=== PATIENT | male | born 1985 | race African-American/Black ===

== ENCOUNTER 2020-08-09 12:37 | Outpatient (CLI) | payer MEDICAID, SELFPAY | END 2020-08-09 17:00 | disposition home or self-care (01) | LOC: SLB 12:37 | PROVIDERS: ATTEND Otolaryngology | DX: Z20.828 Contact with and (suspected) exposure to other viral communicable diseases (principal) | CPT/HCPCS: C9803; U0003 ==

== ENCOUNTER 2020-08-10 07:12 | Outpatient (CLI) | payer MEDICAID, SELFPAY | END 2020-08-10 20:58 | disposition home or self-care (01) | LOC: SLB 07:12 | PROVIDERS: ATTEND Otolaryngology | DX: Z20.828 Contact with and (suspected) exposure to other viral communicable diseases (principal) | CPT/HCPCS: 36415 ==

== ENCOUNTER 2021-03-01 17:53 | Emergency (ER) | payer MEDICAID, SELFPAY ==
[~2021-03-01] VITALS: Ht 175.3 cm; Wt 101.2 kg
[2021-03-01 17:58] VITALS: BP_SYST 169
[2021-03-01 18:33] LABS: BASOPHILS # (AUTO) 0.1 K/uL (0.0-0.2); BASOPHILS % (AUTO) 0.7 % (0.0-2.0); EOSINOPHILS # (AUTO) 0.4 K/uL (0.0-0.4); HEMATOCRIT 40.7 % (36-54); HEMOGLOBIN 13.6 g/dL (14.0-18.0); LYMPHOCYTES # (AUTO) 2.3 K/uL (1.0-5.5); LYMPHOCYTES % (AUTO) 30.3 % (20.5-51.5); MEAN CORPUSCULAR HEMOGLOBIN 31 pg (27-31); MEAN CORPUSCULAR HGB CONC 33 % (32-36); MEAN CORPUSCULAR VOLUME 93 fL (79.0-98.0); MONOCYTES # (AUTO) 0.7 K/uL (0.0-1.0); MONOCYTES % (AUTO) 9.1 % (1.7-9.3); NEUTROPHILS # (AUTO) 4.2 K/uL (1.8-7.7); NEUTROPHILS % (AUTO) 54.9 % (40.0-70.0); PLATELET COUNT (AUTO) 248 K/uL (130-430); RED BLOOD CELL COUNT(AUTO) 4.36 MIL/uL (4.2-6.2); RED CELL DISTRIBUTION WIDTH 14.1 % (9.0-15.0); WHITE BLOOD COUNT (AUTO) 7.7 K/uL (4.8-10.8)
[2021-03-01 18:48] LABS: CALCIUM 8.8 mg/dL (8.4-11.0); CREATININE 1.01 mg/dL (0.55-1.30); POTASSIUM 3.9 mmol/L (3.5-5.1)
[2021-03-01 18:53] LABS: ALBUMIN 3.4 g/dL (3.4-4.8); TOTAL BILIRUBIN 0.3 mg/dL (0.0-1.0)
[2021-03-01 18:55] LABS: PROTHROMBIN TIME 9.8 SECS (9.5-12.5)
[2021-03-01 19:31] VITALS: BP_SYST 142
[2021-03-01 19:33] LABS: AMYLASE 77 U/L (0-100); LIPASE 51 U/L (73-393)
== END 2021-03-01 19:31 | disposition left against medical advice (07) ==
LOC: SED 17:53
DX: R07.89 Other chest pain (principal); R10.12 Left upper quadrant pain; Z88.0 Allergy status to penicillin
CPT/HCPCS: 36415; 71045; 80053; 82150; 83690; 84484; 85025; 85610-TC; 85730-TC; 93005; 99285